=== PATIENT | male | born 1950 | race American Indian/Alaskan Native ===

== ENCOUNTER 2018-10-05 13:40 | Inpatient (IN) | payer MEDICARE, OTHER ==
[2018-10-05 14:27] LABS: Hematocrit 27.7 % (35.5-45.6); Hemoglobin 9.1 gm/dl (11.8-15.2); Mean Corpuscular HGB Conc 33 % (32-34); Mean Corpuscular Volume 103 fl (84-94); Platelet Count 348 K/mm3 (140-440); Red Blood Count 2.68 M/mm3 (3.65-5.03); Red Cell Distribution Width 17.2 % (13.2-15.2)
--- NOTE | 2018-10-05 14:41 | XRay Report ---
AP CHEST: HISTORY: short of breath AP view of the chest demonstrates a normal mediastinal and cardiac contour with clear lungs and normal bony and soft tissue structures. IMPRESSION: Unremarkable AP chest.
[2018-10-05 14:42] LABS: INR 1.72 (0.87-1.13)
[2018-10-05 14:43] LABS: Albumin 2.4 g/dL (3.9-5); Calcium 8.5 mg/dL (8.4-10.2); Partial Thromboplastin Time 34.7 Sec. (24.2-36.6)
[2018-10-05] MEDS ORDERED: CEPHULAC PR ONE (14:50)
[2018-10-05] MEDS ORDERED: ZOSYN/NS 4.5GM/100ML 4.5 GM/100 ML VIAL IV ONE (14:51)
[2018-10-05] MEDS ORDERED: HumuLIN R IV ONE (14:52)
[2018-10-05] MEDS ORDERED: CALCIUM CHLORIDE IV ONE ×2 (14:52→23:00)
[2018-10-05] MEDS ORDERED: D50W (25GM) Syringe IV ONE ×3 (14:52→23:00)
[2018-10-05] MEDS ORDERED: PROVENTIL IH ONE (14:53)
--- NOTE | 2018-10-05 14:59 | Cat Scan Report ---
CT HEAD WITHOUT CONTRAST: HISTORY: Altered mental status. TECHNIQUE: Sequential 2.5mm CT images. COMPARISON: none. FINDINGS: Cerebral Parenchyma: Within normal limits. Cerebellum: Within normal limits. Brainstem: Within normal limits. Ventricles: Normal. Sella: Normal. Extra-axial spaces: Normal. Basal Cisterns: Normal. Intracranial Hemorrhage: None. Midline Shift: None. Calvarium: Normal. Sinuses: Normal. Mastoid Air Cells: Normal. Visualized Orbits: Normal. IMPRESSION: Cranial CT scan within normal limits.
[2018-10-05] MEDS ORDERED: NACL 0.9% 1000 ML IV ONE ×2 (15:03→20:06)
--- NOTE | 2018-10-05 15:08 | Emergency Department Report ---
<DAVID RAGLAND - Last Filed: 10/06/18 05:30> ED Altered Mental Status HPI - General Chief Complaint: Altered Mental Status Stated Complaint: DANISHA Time Seen by Provider: 10/05/18 13:57 - Related Data Home Medications Medication Instructions Recorded Confirmed Last Taken No Known Home Medications [No 10/05/18 10/05/18 Unknown Reported Home Medications] Allergies Allergy/AdvReac Type Severity Reaction Status Date / Time No Known Allergies Allergy Unverified 10/05/18 14:00 ED Past Medical Hx - Medications Home Medications: Home Medications Medication Instructions Recorded Confirmed Last Taken Type No Known Home Medications [No 10/05/18 10/05/18 Unknown History Reported Home Medications] ED Course - Reevaluation(s) Reevaluation #2: 10/06/18 01:38 Responded to call for help from nursing staff for altered mental status and pulselessness. Upon my arrival, patient is pulseless, and not protecting his airway. Patient received CPR, standard ACLS medications. Patient also treated empirically for hyperkalemia, and hypoglycemia. Patient aggressively suctioned by respiratory therapy, and receives [id number] ventilation while pulseless. Patient's has given verbal consent for intubation after pulses have been reobtained. Pulses are obtained, and the patient is intubated by myself. Patient subsequently loses pulses. He is currently receiving resuscitation from the hospitalist, Dr. Claudio Patient has a central line was placed by the preceding team. I will defer postintubation postresuscitation management to the hospital team, which has already admitted the patient. Prognosis is quite poor. - Intubation Time Out Performed: No (verbal consent provided by ) Laryngoscope: Yunior Size: 4 ET Tube Size: 7.5 Tube Secured Depth (cm): 23 Tube Secured Location: teeth Tube Placement Confirmation: visualized tube passing t, equal breath sounds bilat, no breath sounds over epi, confirmation by capnometr Intubation Complications: difficult intubation - Lab Data Result diagrams: 10/05/18 14:05 10/05/18 14:05 ED Disposition Clinical Impression: Hepatic encephalopathy, Lactic acidosis, Hyperkalemia Acute renal failure Qualifiers: Acute renal failure type: with acute tubular necrosis Qualified Code(s): N17.0 - Acute kidney failure with tubular necrosis Sepsis Qualifiers: Sepsis type: sepsis due to unspecified organism Qualified Code(s): A41.9 - Sepsis, unspecified organism Disposition: DC-20 Is pt being admited?: No Does the pt Need Aspirin: No Condition: Undetermined <SYLWIA RAMACHANDRAN - Last Filed: 10/06/18 12:40> ED Altered Mental Status HPI - General Source: EMS Mode of arrival: Stretcher Limitations: Altered Mental Status - History of Present Illness Initial Comments: 68-year-old male with history of COPD, recently diagnosed cirrhosis and liver cancer presents ED by EMS for altered mental status. Patient's states patient started to become less responsive last night. However today, patient has not been talking at all. states patient was recently diagnosed with cirrhosis and liver cancer July 2018. Patient had a peritoneal catheter placed for drainage of ascitic fluid, however, patient has not yet started chemotherapy or radiation treatments. states patient has home health nurse, who comes to see patient, dressings on peritoneal catheter were changed yesterday. MD Complaint: altered mental status -: Last night Severity: severe Consistency of Symptoms: getting worse Context: liver disease ED Review of Systems ROS: Stated complaint: DANISHA Other details as noted in HPI Comment: Unobtainable due to pts medical conditions (altered mental status) ED Past Medical Hx - Past Medical History Previous Medical History?: Yes Hx Liver Disease: Yes (LIVER CANCER) Hx of Cancer: Yes (STAGE 4 LIVER CANCER) - Surgical History Past Surgical History?: Yes - Social History Smoking Status: Unknown if ever smoked ED Physical Exam - General Limitations: Altered Mental Status General appearance: obtunded - Head Head exam: Present: atraumatic, normocephalic - Eye Eye exam: Present: scleral icterus - ENT ENT exam: Present: other (dried blood in oropharynx) - Neck Neck exam: Present: normal inspection - Respiratory Respiratory exam: Present: rhonchi - Cardiovascular Cardiovascular Exam: Present: regular rate, normal rhythm - GI/Abdominal GI/Abdominal exam: Present: soft, distended (mildly), other (catheter in place in right abdominal wall) - Extremities Exam Extremities exam: Present: normal inspection - Skin Skin exam: Present: warm, dry, intact, normal color ED Course Vital Signs 10/05/18 10/05/18 10/05/18 13:46 14:00 14:01 Temperature 96.0 F L Pulse Rate 101 H 120 H Pulse Rate [ Bilateral] Pulse Rate [ Throughout] Respiratory 22 10 L Rate Respiratory Rate [Bilateral ] Respiratory Rate [ Throughout] Blood Pressure 109/62 Blood Pressure 108/60 [Left] O2 Sat by Pulse 97 98 97 Oximetry 10/05/18 10/05/18 10/05/18 14:07 14:15 14:16 Temperature Pulse Rate 118 H 98 H Pulse Rate [ Bilateral] Pulse Rate [ Throughout] Respiratory 10 L 10 L 21 Rate Respiratory Rate [Bilateral ] Respiratory Rate [ Throughout] Blood Pressure 101/62 Blood Pressure 95/49 [Left] O2 Sat by Pulse 95 96 98 Oximetry 10/05/18 10/05/18 10/05/18 14:38 14:45 14:46 Temperature Pulse Rate 98 H 117 H 97 H Pulse Rate [ Bilateral] Pulse Rate [ Throughout] Respiratory 21 10 L 25 H Rate Respiratory Rate [Bilateral ] Respiratory Rate [ Throughout] Blood Pressure 93/64 112/60 Blood Pressure 99/58 [Left] O2 Sat by Pulse 98 96 99 Oximetry 10/05/18 10/05/18 10/05/18 15:00 15:15 15:16 Temperature Pulse Rate 97 H 116 H 109 H Pulse Rate [ Bilateral] Pulse Rate [ Throughout] Respiratory 25 H 22 25 H Rate Respiratory Rate [Bilateral ] Respiratory Rate [ Throughout] Blood Pressure 103/60 118/73 Blood Pressure 102/66 [Left] O2 Sat by Pulse 98 95 94 Oximetry 10/05/18 10/05/18 10/05/18 15:30 15:46 15:55 Temperature 97.2 F L Pulse Rate 115 H 109 H Pulse Rate [ Bilateral] Pulse Rate [ Throughout] Respiratory 26 H 24 Rate Respiratory Rate [Bilateral ] Respiratory Rate [ Throughout] Blood Pressure 102/66 102/66 Blood Pressure [Left] O2 Sat by Pulse 94 97 Oximetry 10/05/18 10/05/18 10/05/18 16:00 16:16 16:25 Temperature Pulse Rate 109 H 98 H 112 H Pulse Rate [ Bilateral] Pulse Rate [ Throughout] Respiratory 23 25 H 25 H Rate Respiratory Rate [Bilateral ] Respiratory Rate [ Throughout] Blood Pressure 128/87 130/79 Blood Pressure 125/74 [Left] O2 Sat by Pulse 98 99 95 Oximetry 10/05/18 10/05/18 10/05/18 16:30 16:40 16:46 Temperature Pulse Rate 109 H 103 H 108 H Pulse Rate [ Bilateral] Pulse Rate [ Throughout] Respiratory 27 H 24 28 H Rate Respiratory Rate [Bilateral ] Respiratory Rate [ Throughout] Blood Pressure 125/74 108/59 107/68 Blood Pressure [Left] O2 Sat by Pulse 100 100 100 Oximetry 10/05/18 10/05/18 10/05/18 17:00 17:16 17:30 Temperature Pulse Rate 108 H 107 H 103 H Pulse Rate [ 100 H Bilateral] Pulse Rate [ 103 H Throughout] Respiratory 27 H 26 H 24 Rate Respiratory 27 H Rate [Bilateral ] Respiratory 24 Rate [ Throughout] Blood Pressure 101/77 107/68 116/67 Blood Pressure [Left] O2 Sat by Pulse 100 100 100 Oximetry 10/05/18 10/05/18 10/05/18 17:46 18:00 18:16 Temperature Pulse Rate 101 H 105 H 113 H Pulse Rate [ Bilateral] Pulse Rate [ Throughout] Respiratory 27 H 25 H 25 H Rate Respiratory Rate [Bilateral ] Respiratory Rate [ Throughout] Blood Pressure 97/61 117/82 130/88 Blood Pressure [Left] O2 Sat by Pulse 100 100 100 Oximetry 10/05/18 10/05/18 10/05/18 18:30 18:46 19:00 Temperature Pulse Rate 114 H 116 H 116 H Pulse Rate [ Bilateral] Pulse Rate [ Throughout] Respiratory 26 H 24 23 Rate Respiratory Rate [Bilateral ] Respiratory Rate [ Throughout] Blood Pressure 115/77 119/76 115/65 Blood Pressure [Left] O2 Sat by Pulse 100 99 99 Oximetry 10/05/18 10/05/18 10/05/18 19:16 19:30 19:46 Temperature Pulse Rate 107 H 104 H 102 H Pulse Rate [ Bilateral] Pulse Rate [ Throughout] Respiratory 20 21 20 Rate Respiratory Rate [Bilateral ] Respiratory Rate [ Throughout] Blood Pressure 93/54 96/47 80/54 Blood Pressure [Left] O2 Sat by Pulse 96 98 98 Oximetry 10/05/18 10/05/18 10/05/18 20:00 20:16 20:30 Temperature Pulse Rate 99 H 103 H 103 H Pulse Rate [ Bilateral] Pulse Rate [ Throughout] Respiratory 24 25 H 28 H Rate Respiratory Rate [Bilateral ] Respiratory Rate [ Throughout] Blood Pressure 99/64 91/60 98/62 Blood Pressure [Left] O2 Sat by Pulse 97 99 100 Oximetry 10/05/18 10/05/18 10/05/18 20:46 21:00 21:16 Temperature Pulse Rate 108 H 104 H 102 H Pulse Rate [ Bilateral] Pulse Rate [ Throughout] Respiratory 28 H 22 34 H Rate Respiratory Rate [Bilateral ] Respiratory Rate [ Throughout] Blood Pressure 91/64 99/56 84/48 Blood Pressure [Left] O2 Sat by Pulse 100 100 100 Oximetry 10/05/18 10/05/18 10/05/18 21:28 21:30 21:46 Temperature Pulse Rate 98 H Pulse Rate [ Bilateral] Pulse Rate [ Throughout] Respiratory 24 22 Rate Respiratory Rate [Bilateral ] Respiratory Rate [ Throughout] Blood Pressure 103/55 103/56 Blood Pressure [Left] O2 Sat by Pulse 100 100 100 Oximetry 10/05/18 10/05/18 10/05/18 22:00 22:16 22:30 Temperature Pulse Rate Pulse Rate [ Bilateral] Pulse Rate [ Throughout] Respiratory Rate Respiratory Rate [Bilateral ] Respiratory Rate [ Throughout] Blood Pressure 85/52 91/61 124/50 Blood Pressure [Left] O2 Sat by Pulse 100 96 80 L Oximetry 10/05/18 10/05/18 10/05/18 22:46 23:00 23:06 Temperature Pulse Rate 113 H 112 H 109 H Pulse Rate [ Bilateral] Pulse Rate [ Throughout] Respiratory 24 24 25 H Rate Respiratory Rate [Bilateral ] Respiratory Rate [ Throughout] Blood Pressure 105/47 97/50 97/50 Blood Pressure [Left] O2 Sat by Pulse 89 92 92 Oximetry 10/05/18 10/05/18 10/05/18 23:16 23:30 23:46 Temperature Pulse Rate 106 H 106 H 103 H Pulse Rate [ Bilateral] Pulse Rate [ Throughout] Respiratory 25 H 26 H 27 H Rate Respiratory Rate [Bilateral ] Respiratory Rate [ Throughout] Blood Pressure 95/48 87/46 85/45 Blood Pressure [Left] O2 Sat by Pulse 91 93 92 Oximetry 10/06/18 10/06/18 10/06/18 00:00 00:16 00:30 Temperature Pulse Rate 101 H 99 H 97 H Pulse Rate [ Bilateral] Pulse Rate [ Throughout] Respiratory 25 H 28 H 25 H Rate Respiratory Rate [Bilateral ] Respiratory Rate [ Throughout] Blood Pressure 77/39 80/47 80/53 Blood Pressure [Left] O2 Sat by Pulse 93 94 92 Oximetry 10/06/18 10/06/18 10/06/18 00:46 01:00 01:16 Temperature Pulse Rate 96 H 90 124 H Pulse Rate [ Bilateral] Pulse Rate [ Throughout] Respiratory 28 H 28 H 29 H Rate Respiratory Rate [Bilateral ] Respiratory Rate [ Throughout] Blood Pressure 87/48 84/50 82/33 Blood Pressure [Left] O2 Sat by Pulse 94 88 41 L Oximetry 10/06/18 10/06/18 01:30 01:46 Temperature Pulse Rate 36 L Pulse Rate [ Bilateral] Pulse Rate [ Throughout] Respiratory 10 L 21 Rate Respiratory Rate [Bilateral ] Respiratory Rate [ Throughout] Blood Pressure 82/33 108/16 Blood Pressure [Left] O2 Sat by Pulse Oximetry - Reevaluation(s) Reevaluation #1: 10/05/18 16:27 Spoke at length with pt's . States pt is currently with [facility], however, pt is not DNR. Informed her that pt is very sick at this time, and that a cardiac arrest is possible in this setting. Spoke w/ her about possible intubation due to labored breathing and to protect his airway, however, she does not want him intubated b/c she believes he will never come off the vent. I explained to her that if pt improves, he will be extubated. still refuses intubation at this time. Will place on BiPAP. - Consultations Consultation #1: 10/05/18 16:12 Spoke w/ [place] physician, Dr Villar. [facility] records show that pt has hx of ETOH abuse, hepatocellular carcinoma, portal vein thrombosis, malignant ascites, not candidate for aggressive systemic treatment. Patient has had pallitive care consults as well. She feels as if this patient is too unstable for transfer. Would like pt to be admitted here at [facility]. Consultation #2: 10/05/18 16:09 Spoke w/ Dr Nolen, faa certified powerplant mechanic, regarding pt's acute renal failure and hyperkalemia. Will see the patient. - Lab Data Result diagrams: 10/05/18 14:05 10/05/18 14:05 Lab Results 10/05/18 10/05/18 10/05/18 Range/Units 14:05 14:05 14:05 WBC 27.4 H (4.5-11.0) K/mm3 RBC 2.68 L (3.65-5.03) M/mm3 Hgb 9.1 L (11.8-15.2) gm/dl Hct 27.7 L (35.5-45.6) % MCV 103 H (84-94) fl MCH 34 H (28-32) pg MCHC 33 (32-34) % RDW 17.2 H (13.2-15.2) % Plt Count 348 (140-440) K/mm3 Add Manual Diff Complete Total Counted 100 Seg Neuts % (Manual) 86.0 H (40.0-70.0) % Band Neutrophils % 0 % Lymphocytes % (Manual) 9.0 L (13.4-35.0) % Reactive Lymphs % (Man) 0 % Monocytes % (Manual) 5.0 (0.0-7.3) % Eosinophils % (Manual) 0 (0.0-4.3) % Basophils % (Manual) 0 (0.0-1.8) % Metamyelocytes % 0 % Myelocytes % 0 % Promyelocytes % 0 % Blast Cells % 0 % Nucleated RBC % Not Reportable Seg Neutrophils # Man 23.6 H (1.8-7.7) K/mm3 Band Neutrophils # 0.0 K/mm3 Lymphocytes # (Manual) 2.5 (1.2-5.4) K/mm3 Abs React Lymphs (Man) 0.0 K/mm3 Monocytes # (Manual) 1.4 H (0.0-0.8) K/mm3 Eosinophils # (Manual) 0.0 (0.0-0.4) K/mm3 Basophils # (Manual) 0.0 (0.0-0.1) K/mm3 Metamyelocytes # 0.0 K/mm3 Myelocytes # 0.0 K/mm3 Promyelocytes # 0.0 K/mm3 Blast Cells # 0.0 K/mm3 WBC Morphology Not Reportable Hypersegmented Neuts Not Reportable Hyposegmented Neuts Not Reportable Hypogranular Neuts Not Reportable Smudge Cells Not Reportable Toxic Granulation Not Reportable Toxic Vacuolation Not Reportable Dohle Bodies Not Reportable Pelger-Huet Anomaly Not Reportable Duncan Rods Not Reportable Platelet Estimate Not Reportable Clumped Platelets Not Reportable Plt Clumps, EDTA Not Reportable Large Platelets Not Reportable Giant Platelets Not Reportable Platelet Satelliting Not Reportable Plt Morphology Comment Not Reportable RBC Morphology Normal Dimorphic RBCs Not Reportable Polychromasia Not Reportable Hypochromasia Not Reportable Poikilocytosis Not Reportable Anisocytosis Not Reportable Microcytosis Not Reportable Macrocytosis Not Reportable Spherocytes Not Reportable Pappenheimer Bodies Not Reportable Sickle Cells Not Reportable Target Cells Not Reportable Tear Drop Cells Not Reportable Ovalocytes Not Reportable Helmet Cells Not Reportable Fernandez-Bluejacket Bodies Not Reportable [place] Rings Not Reportable Eagle Cells Not Reportable Bite Cells Not Reportable Crenated Cell Not Reportable Elliptocytes Not Reportable Acanthocytes (Spur) Not Reportable Rouleaux Not Reportable Hemoglobin C Crystals Not Reportable Schistocytes Not Reportable Malaria parasites Not Reportable Anderson Bodies Not Reportable Hem Pathologist Commnt No PT 20.6 H (12.2-14.9) Sec. INR 1.72 H (0.87-1.13) APTT 34.7 (24.2-36.6) Sec. Sodium 139 (137-145) mmol/L Potassium 6.8 H* (3.6-5.0) mmol/L Chloride 95.8 L (98-107) mmol/L Carbon Dioxide 20 L (22-30) mmol/L Anion Gap 30 mmol/L BUN 84 H (9-20) mg/dL Creatinine 2.5 H (0.8-1.5) mg/dL Estimated GFR 26 ml/min BUN/Creatinine Ratio 34 % Glucose 80 (75-100) mg/dL Lactic Acid (0.7-2.0) mmol/L Calcium 8.5 (8.4-10.2) mg/dL Total Bilirubin 7.80 H (0.1-1.2) mg/dL AST 343 H (5-40) units/L ALT 99 H (7-56) units/L Alkaline Phosphatase 264 H (35-129) units/L Ammonia (25-60) umol/L Troponin T (0.00-0.029) ng/mL Total Protein 6.8 (6.3-8.2) g/dL Albumin 2.4 L (3.9-5) g/dL Albumin/Globulin Ratio 0.5 % Urine Color (Yellow) Urine Turbidity (Clear) Urine pH (5.0-7.0) Ur Specific Elon (1.003-1.030) Urine Protein (Negative) mg/dL Urine Glucose (UA) (Negative) mg/dL Urine Ketones (Negative) mg/dL Urine Blood (Negative) Urine Nitrite (Negative) Urine Bilirubin (Negative) Urine Ictotest (Negative) Urine Urobilinogen (<2.0) mg/dL Ur Leukocyte Esterase (Negative) Urine WBC (Auto) (0.0-6.0) /HPF Urine RBC (Auto) (0.0-6.0) /HPF U Epithel Cells (Auto) (0-13.0) /HPF Urine Bacteria (Auto) (Negative) /HPF Urine WBC Clumps /HPF Hyaline Casts /LPF Urine Mucus /HPF Urine Yeast (Budding) /HPF 10/05/18 10/05/18 10/05/18 Range/Units 14:05 14:05 14:23 WBC (4.5-11.0) K/mm3 RBC (3.65-5.03) M/mm3 Hgb (11.8-15.2) gm/dl Hct (35.5-45.6) % MCV (84-94) fl MCH (28-32) pg MCHC (32-34) % RDW (13.2-15.2) % Plt Count (140-440) K/mm3 Add Manual Diff Total Counted Seg Neuts % (Manual) (40.0-70.0) % Band Neutrophils % % Lymphocytes % (Manual) (13.4-35.0) % Reactive Lymphs % (Man) % Monocytes % (Manual) (0.0-7.3) % Eosinophils % (Manual) (0.0-4.3) % Basophils % (Manual) (0.0-1.8) % Metamyelocytes % % Myelocytes % % Promyelocytes % % Blast Cells % % Nucleated RBC % Seg Neutrophils # Man (1.8-7.7) K/mm3 Band Neutrophils # K/mm3 Lymphocytes # (Manual) (1.2-5.4) K/mm3 Abs React Lymphs (Man) K/mm3 Monocytes # (Manual) (0.0-0.8) K/mm3 Eosinophils # (Manual) (0.0-0.4) K/mm3 Basophils # (Manual) (0.0-0.1) K/mm3 Metamyelocytes # K/mm3 Myelocytes # K/mm3 Promyelocytes # K/mm3 Blast Cells # K/mm3 WBC Morphology Hypersegmented Neuts Hyposegmented Neuts Hypogranular Neuts Smudge Cells Toxic Granulation Toxic Vacuolation Dohle Bodies Pelger-Huet Anomaly Duncan Rods Platelet Estimate Clumped Platelets Plt Clumps, EDTA Large Platelets Giant Platelets Platelet Satelliting Plt Morphology Comment RBC Morphology Dimorphic RBCs Polychromasia Hypochromasia Poikilocytosis Anisocytosis Microcytosis Macrocytosis Spherocytes Pappenheimer Bodies Sickle Cells Target Cells Tear Drop Cells Ovalocytes Helmet Cells Fernandez-Bluejacket Bodies [place] Rings Eagle Cells Bite Cells Crenated Cell Elliptocytes Acanthocytes (Spur) Rouleaux Hemoglobin C Crystals Schistocytes Malaria parasites Anderson Bodies Hem Pathologist Commnt PT (12.2-14.9) Sec. INR (0.87-1.13) APTT (24.2-36.6) Sec. Sodium (137-145) mmol/L Potassium (3.6-5.0) mmol/L Chloride (98-107) mmol/L Carbon Dioxide (22-30) mmol/L Anion Gap mmol/L BUN (9-20) mg/dL Creatinine (0.8-1.5) mg/dL Estimated GFR ml/min BUN/Creatinine Ratio % Glucose (75-100) mg/dL Lactic Acid 7.20 H* (0.7-2.0) mmol/L Calcium (8.4-10.2) mg/dL Total Bilirubin (0.1-1.2) mg/dL AST (5-40) units/L ALT (7-56) units/L Alkaline Phosphatase (35-129) units/L Ammonia 143.0 H (25-60) umol/L Troponin T < 0.010 (0.00-0.029) ng/mL Total Protein (6.3-8.2) g/dL Albumin (3.9-5) g/dL Albumin/Globulin Ratio % Urine Color (Yellow) Urine Turbidity (Clear) Urine pH (5.0-7.0) Ur Specific Elon (1.003-1.030) Urine Protein (Negative) mg/dL Urine Glucose (UA) (Negative) mg/dL Urine Ketones (Negative) mg/dL Urine Blood (Negative) Urine Nitrite (Negative) Urine Bilirubin (Negative) Urine Ictotest (Negative) Urine Urobilinogen (<2.0) mg/dL Ur Leukocyte Esterase (Negative) Urine WBC (Auto) (0.0-6.0) /HPF Urine RBC (Auto) (0.0-6.0) /HPF U Epithel Cells (Auto) (0-13.0) /HPF Urine Bacteria (Auto) (Negative) /HPF Urine WBC Clumps /HPF Hyaline Casts /LPF Urine Mucus /HPF Urine Yeast (Budding) /HPF 10/05/18 10/05/18 10/05/18 Range/Units 14:50 15:30 17:58 WBC (4.5-11.0) K/mm3 RBC (3.65-5.03) M/mm3 Hgb (11.8-15.2) gm/dl Hct (35.5-45.6) % MCV (84-94) fl MCH (28-32) pg MCHC (32-34) % RDW (13.2-15.2) % Plt Count (140-440) K/mm3 Add Manual Diff Total Counted Seg Neuts % (Manual) (40.0-70.0) % Band Neutrophils % % Lymphocytes % (Manual) (13.4-35.0) % Reactive Lymphs % (Man) % Monocytes % (Manual) (0.0-7.3) % Eosinophils % (Manual) (0.0-4.3) % Basophils % (Manual) (0.0-1.8) % Metamyelocytes % % Myelocytes % % Promyelocytes % % Blast Cells % % Nucleated RBC % Seg Neutrophils # Man (1.8-7.7) K/mm3 Band Neutrophils # K/mm3 Lymphocytes # (Manual) (1.2-5.4) K/mm3 Abs React Lymphs (Man) K/mm3 Monocytes # (Manual) (0.0-0.8) K/mm3 Eosinophils # (Manual) (0.0-0.4) K/mm3 Basophils # (Manual) (0.0-0.1) K/mm3 Metamyelocytes # K/mm3 Myelocytes # K/mm3 Promyelocytes # K/mm3 Blast Cells # K/mm3 WBC Morphology Hypersegmented Neuts Hyposegmented Neuts Hypogranular Neuts Smudge Cells Toxic Granulation Toxic Vacuolation Dohle Bodies Pelger-Huet Anomaly Duncan Rods Platelet Estimate Clumped Platelets Plt Clumps, EDTA Large Platelets Giant Platelets Platelet Satelliting Plt Morphology Comment RBC Morphology Dimorphic RBCs Polychromasia Hypochromasia Poikilocytosis Anisocytosis Microcytosis Macrocytosis Spherocytes Pappenheimer Bodies Sickle Cells Target Cells Tear Drop Cells Ovalocytes Helmet Cells Fernandez-Bluejacket Bodies [place] Rings Eagle Cells Bite Cells Crenated Cell Elliptocytes Acanthocytes (Spur) Rouleaux Hemoglobin C Crystals Schistocytes Malaria parasites Anderson Bodies Hem Pathologist Commnt PT (12.2-14.9) Sec. INR (0.87-1.13) APTT (24.2-36.6) Sec. Sodium (137-145) mmol/L Potassium (3.6-5.0) mmol/L Chloride (98-107) mmol/L Carbon Dioxide (22-30) mmol/L Anion Gap mmol/L BUN (9-20) mg/dL Creatinine (0.8-1.5) mg/dL Estimated GFR ml/min BUN/Creatinine Ratio % Glucose (75-100) mg/dL Lactic Acid 7.60 H* 6.20 H* (0.7-2.0) mmol/L Calcium (8.4-10.2) mg/dL Total Bilirubin (0.1-1.2) mg/dL AST (5-40) units/L ALT (7-56) units/L Alkaline Phosphatase (35-129) units/L Ammonia (25-60) umol/L Troponin T (0.00-0.029) ng/mL Total Protein (6.3-8.2) g/dL Albumin (3.9-5) g/dL Albumin/Globulin Ratio % Urine Color Emy (Yellow) Urine Turbidity Slightly-cloudy (Clear) Urine pH 5.0 (5.0-7.0) Ur Specific Elon 1.016 (1.003-1.030) Urine Protein <15 mg/dl (Negative) mg/dL Urine Glucose (UA) Neg (Negative) mg/dL Urine Ketones Neg (Negative) mg/dL Urine Blood Lg (Negative) Urine Nitrite Neg (Negative) Urine Bilirubin Sm (Negative) Urine Ictotest Negative (Negative) Urine Urobilinogen 4.0 (<2.0) mg/dL Ur Leukocyte Esterase Neg (Negative) Urine WBC (Auto) 6.0 (0.0-6.0) /HPF Urine RBC (Auto) 8.0 (0.0-6.0) /HPF U Epithel Cells (Auto) < 1.0 (0-13.0) /HPF Urine Bacteria (Auto) 1+ (Negative) /HPF Urine WBC Clumps 2+ /HPF Hyaline Casts 7 /LPF Urine Mucus Few /HPF Urine Yeast (Budding) Few /HPF - EKG Data -: EKG Interpreted by Me EKG shows normal: sinus rhythm, axis, intervals, QRS complexes, ST-T waves Rate: normal Interpretation: no acute changes - Radiology Data Radiology results: report reviewed, image reviewed - Medical Decision Making 68-year-old male with history of liver cirrhosis and liver cancer presents with altered mental status since last night. Patient is obtunded, minimal response to painful stimuli. Blood pressure is borderline, pt is afebrile. Breathing labored. CT Head and CXR negative. WBCs elevated to 26, with elevation in lactic acid to 7. Cultures obtained, zosyn given. Patient in acute renal failure with elevation of BUN and creatnine. IV fluids given. Pt resuscitated w/ 30 cc/kg bolus of NS. Potassium elevated due to ARF. Insulin, D50, calcium, albuterol given, kayexalate given. Dr Nolen, faa certified powerplant mechanic, consulted. Ammonia level also elevated, possibly contributing to pt's altered mental status. OR lactulose ordered for patient. Patient placed on BIPAP since refused intubation, however, does state that pt is a full code. Patient on Hospice care due to his liver cancer. Spoke at length with patient's about his diagnoses and his critical condition. understands. Spoke w/ on-call [place] physician. States pt too unstable for transfer to their facility. Dr Ramsey, hospitalist, to admit the patient. - Differential Diagnosis sepsis, pneumonia, CVA, hepatic encephalopathy, SBP Critical Care Time: Yes Critical care time in (mins) excluding proc time.: 60 Critical care attestation.: If time is entered above; I have spent that time in minutes in the direct care of this critically ill patient, excluding procedure time. Critical Care Time: 60 minutes ED Disposition Is pt being admited?: Yes Time of Disposition: 16:30
[2018-10-05 15:15] LABS: Bacteria,Urine 1+ /HPF (Negative); Bilirubin,Urine SM (Negative); Blood,Urine LG (Negative); Color,Urine Amber (Yellow); Mucus,Urine FEW /HPF; Protein,Urine <15 mg/dL mg/dL (Negative)
[2018-10-05] MEDS ORDERED: NACL 0.9% 500 ML 500 ML ONE ×2 (15:42→23:33)
[2018-10-05 15:46] LABS: Basophils % (Manual) 0 % (0.0-1.8); Eosinophils % (Manual) 0 % (0.0-4.3); RBC Morphology Normal; Total Cells Counted 100
[2018-10-05 16:00] LABS: Hyaline Casts,Urine 7 /LPF
[2018-10-05 16:02] LABS: Ictotest,Urine Negative (Negative)
[2018-10-05] MEDS ORDERED: KIONEX PR ONE (18:08)
[2018-10-05] MEDS ORDERED: SODIUM CHLORIDE FLUSH SYRINGE 10 ML IV PRN (20:03)
[2018-10-05] MEDS ORDERED: PROVENTIL IH PRN (20:03)
[2018-10-05] MEDS ORDERED: VANCOMYCIN 1,000 MG in NACL 0.9% 500 ML 500 ML IV ONE (20:06)
--- NOTE | 2018-10-05 20:08 | History and Physical Report ---
History of Present Illness Chief complaint: Hes getting more confused History of present illness: 68 YO Male with Stage 4 Liver Cancer, Recurrent Ascites S/P Peritoneal drain placement, Cirrhosis, COPD currently on Hospice Service with [facility] presents to ED for evaluation. Pt is stuporous/comatose and unable to provide history. Pt history provided by who is at bedside during exam and interview. As per , the patient has become increasingly unresponsive, nonverbal, and unable to eat over the past 1 week, with worsening symptoms over the past 1 day. EMS notifies and upon arrival patient found to be stuporous. Pt transported to [facility] for further care and evaluation. Pt seen and evaluated in ED and found to have sepsis, Acute/Chronic Renal Failure, Acidosis, Encephalopathy, and Acute Respiratory Failure. Pt found to have poor prognosis. Pt expressed desire for aggressive medical care and revoked Hospice Benefit. Risks and benefits explained to patient who acknowledges understanding that the therapy may worsen patient status. [facility] Physician notified, and approved admission to ICU. Discussed with Dr. Villar. No further history obtainable. Pt admitted to ICU and initiated on sepsis protocol. Pt seen and evaluated by Nephrology service in ED and found not to be a candidate for dialysis at this time. Past History Past Medical History: cancer, COPD Past Surgical History: Other (PD drian placement) Social history: , lives with family. denies: smoking, alcohol abuse Family history: hypertension Medications and Allergies Allergies Allergy/AdvReac Type Severity Reaction Status Date / Time No Known Allergies Allergy Unverified 10/05/18 14:00 Home Medications Medication Instructions Recorded Confirmed Last Taken Type No Known Home Medications [No 10/05/18 10/05/18 Unknown History Reported Home Medications] Active Meds: Active Medications Albuterol (Proventil) 2.5 mg IH Q3HRT PRN PRN Reason: Shortness Of Breath Vancomycin HCl 1,000 mg/ (Sodium Chloride) 520 mls @ 333 mls/hr IV ONCE ONE; Protocol Stop: 10/05/18 21:39 Sodium Chloride (Sodium Chloride Flush Syringe 10 Ml) 10 ml IV BID SHIRA Sodium Chloride (Sodium Chloride Flush Syringe 10 Ml) 10 ml IV PRN PRN PRN Reason: LINE FLUSH Sodium Chloride (Nacl 0.9% 1000 Ml) 1,500 ml 30 ml/kg (1500 ml) IV ONCE ONE Stop: 10/05/18 20:07 Review of Systems ROS unobtainable: due to mental status Exam - Constitutional Vitals: Temp Pulse Resp BP Pulse Ox 97.2 F L 107 H 20 93/54 96 10/05/18 15:55 10/05/18 19:16 10/05/18 19:16 10/05/18 19:16 10/05/18 19:16 General appearance: Present: severe distress, cachectic - EENT Eyes: Present: miosis - Neck Neck: Present: supple, normal ROM, masses or JVD - Respiratory Respiratory: bilateral: diminished, rhonchi - Cardiovascular Rhythm: other (tachycardia, hypotension) Heart Sounds: Present: S1 & S2. Absent: rub, click - Extremities Extremities: pulses symmetrical, No edema Peripheral Pulses: abnormal (capillary refill greater than 3.5 seconds) - Abdominal General gastrointestinal: Present: soft, non-tender, distended, hypoactive bowel sounds Male genitourinary: Present: normal - Integumentary Integumentary: Present: clear, dry, clammy, decreased turgor - Musculoskeletal Musculoskeletal: generalized weakness - Psychiatric Psychiatric: no appropriate mood/affect, no intact judgment & insight, no memory intact - Neurologic Neurologic: no moves all extremities, no gait normal Results - Labs CBC & Chem 7: 10/05/18 14:05 10/05/18 14:05 Labs: Abnormal lab results 10/05/18 10/05/18 10/05/18 Range/Units 14:05 14:05 14:05 WBC 27.4 H (4.5-11.0) K/mm3 RBC 2.68 L (3.65-5.03) M/mm3 Hgb 9.1 L (11.8-15.2) gm/dl Hct 27.7 L (35.5-45.6) % MCV 103 H (84-94) fl MCH 34 H (28-32) pg RDW 17.2 H (13.2-15.2) % Seg Neuts % (Manual) 86.0 H (40.0-70.0) % Lymphocytes % (Manual) 9.0 L (13.4-35.0) % Seg Neutrophils # Man 23.6 H (1.8-7.7) K/mm3 Monocytes # (Manual) 1.4 H (0.0-0.8) K/mm3 PT 20.6 H (12.2-14.9) Sec. INR 1.72 H (0.87-1.13) Potassium 6.8 H* (3.6-5.0) mmol/L Chloride 95.8 L (98-107) mmol/L Carbon Dioxide 20 L (22-30) mmol/L BUN 84 H (9-20) mg/dL Creatinine 2.5 H (0.8-1.5) mg/dL Lactic Acid (0.7-2.0) mmol/L Total Bilirubin 7.80 H (0.1-1.2) mg/dL AST 343 H (5-40) units/L ALT 99 H (7-56) units/L Alkaline Phosphatase 264 H (35-129) units/L Ammonia (25-60) umol/L Albumin 2.4 L (3.9-5) g/dL 10/05/18 10/05/18 10/05/18 Range/Units 14:05 14:05 15:30 WBC (4.5-11.0) K/mm3 RBC (3.65-5.03) M/mm3 Hgb (11.8-15.2) gm/dl Hct (35.5-45.6) % MCV (84-94) fl MCH (28-32) pg RDW (13.2-15.2) % Seg Neuts % (Manual) (40.0-70.0) % Lymphocytes % (Manual) (13.4-35.0) % Seg Neutrophils # Man (1.8-7.7) K/mm3 Monocytes # (Manual) (0.0-0.8) K/mm3 PT (12.2-14.9) Sec. INR (0.87-1.13) Potassium (3.6-5.0) mmol/L Chloride (98-107) mmol/L Carbon Dioxide (22-30) mmol/L BUN (9-20) mg/dL Creatinine (0.8-1.5) mg/dL Lactic Acid 7.20 H* 7.60 H* (0.7-2.0) mmol/L Total Bilirubin (0.1-1.2) mg/dL AST (5-40) units/L ALT (7-56) units/L Alkaline Phosphatase (35-129) units/L Ammonia 143.0 H (25-60) umol/L Albumin (3.9-5) g/dL 10/05/18 Range/Units 17:58 WBC (4.5-11.0) K/mm3 RBC (3.65-5.03) M/mm3 Hgb (11.8-15.2) gm/dl Hct (35.5-45.6) % MCV (84-94) fl MCH (28-32) pg RDW (13.2-15.2) % Seg Neuts % (Manual) (40.0-70.0) % Lymphocytes % (Manual) (13.4-35.0) % Seg Neutrophils # Man (1.8-7.7) K/mm3 Monocytes # (Manual) (0.0-0.8) K/mm3 PT (12.2-14.9) Sec. INR (0.87-1.13) Potassium (3.6-5.0) mmol/L Chloride (98-107) mmol/L Carbon Dioxide (22-30) mmol/L BUN (9-20) mg/dL Creatinine (0.8-1.5) mg/dL Lactic Acid 6.20 H* (0.7-2.0) mmol/L Total Bilirubin (0.1-1.2) mg/dL AST (5-40) units/L ALT (7-56) units/L Alkaline Phosphatase (35-129) units/L Ammonia (25-60) umol/L Albumin (3.9-5) g/dL Assessment and Plan - Patient Problems (1) Sepsis Current Visit: Yes Status: Acute Qualifiers: Sepsis type: sepsis due to unspecified organism Qualified Code(s): A41.9 - Sepsis, unspecified organism Plan to address problem: Admit to ICU, Initiated sepsis protocol in ED, IVF resuscitation therapy, serial lactic acid, monitor uop q shift, blood cultures, urinalysis, supportive care. The high probability of a clinically significant, sudden or life threatening deterioration of the [neuro, cardiac renal, pulmonary] system(s) required my full and direct attention, intervention and personal management. The aggregate critical care time was [120] minutes. This time is in addition to time spent performing reported procedures but includes the following: [x] Data Review and interpretation [x] Patient assessment and monitoring of vital signs [x] Documentation [x] Medication orders and management (2) Acidosis Current Visit: Yes Status: Acute Plan to address problem: treat sepsis, IVF resuscitation therapy, serial lactic acid (3) Acute renal failure Current Visit: Yes Status: Acute Qualifiers: Acute renal failure type: with acute tubular necrosis Qualified Code(s): N17.0 - Acute kidney failure with tubular necrosis Plan to address problem: IVF resuscitation therapy, monitor uop q shift, Nephrology seen and evaluated in ED, but no active role in care at time of exam. Feel free to reconsult if needed. (4) Hepatic encephalopathy Current Visit: Yes Status: Acute Plan to address problem: Ammonia level, Liver Function test, supportive care, (5) Respiratory failure Current Visit: Yes Status: Acute Qualifiers: Chronicity: acute Respiratory failure complication: hypoxia Qualified Code(s): J96.01 - Acute respiratory failure with hypoxia Plan to address problem: chest x ray, NIPPV, supplemental oxygen, nebulizer therrapy, Admit to ICU, pulse oximetry (6) DVT prophylaxis Current Visit: Yes Status: Acute Plan to address problem: SCD to BLE while in bed.
[2018-10-05] MEDS ORDERED: VANCOMYCIN/NS 1 GM/250 ML 1 GM/250 ML BAG IV ONE (21:00)
[2018-10-05] MEDS ORDERED: NACL 0.9% 1000 ML 1,000 ML ONE (21:14)
[2018-10-05] MEDS ORDERED: ZOSYN/NS 4.5GM/100ML 4.5 GM/100 ML VIAL IV SCH (22:00)
[2018-10-05] MEDS ORDERED: SODIUM CHLORIDE FLUSH SYRINGE 10 ML IV SCH (22:00)
[2018-10-05] MEDS ORDERED: NACL 0.45% 2,000 ML IV SCH (22:00)
--- NOTE | 2018-10-05 22:00 | XRay Report ---
FINAL REPORT PROCEDURE: XR CHEST 1V AP TECHNIQUE: Chest radiograph anteroposterior view. CPT 73592 HISTORY: central line placement COMPARISON: No prior studies are available for comparison. FINDINGS: Heart: Normal. Mediastinum/Vessels: Normal. Lungs/Pleural space: Lungs are expanded. There are no infiltrates, effusions or pneumothoraces.. Bony thorax: No acute osseous abnormality. Life support devices: There is the left-sided central venous catheter. The tip is in the superior arron a cava.. IMPRESSION: Heart size is normal. Lungs are expanded. There are no infiltrates, effusions or pneumothoraces.. There is the left-sided central venous catheter. The tip is in the superior vena cava..
[2018-10-05] MEDS ORDERED: INTROPIN DRIP 800 MG/D5W 250 ML IV ONE (23:00)
[2018-10-05] MEDS ORDERED: ADRENALIN ONE (23:00)
[2018-10-05] MEDS ORDERED: CORDARONE IV ONE (23:00)
[2018-10-06] MEDS ORDERED: ZOSYN/NS 2.25 GM/50ML 2.25 GM/50 ML BAG IV SCH
[2018-10-06 02:18] VITALS: BP 108/16
--- NOTE | 2018-10-06 02:19 | Event Note ---
Date: 10/06/18 I responded to a call on a patient undergoing CPR while on ICU hold in the emergency room. Patient was given full ACLS protocol, was revived twice. Patient again went into cardiopulmonary arrest and CPR was carried out for the 3rd time for about 12 minutes and patient finally pronounced at 1:54 a.m . Patient's who was present in the hospital was notified.
--- NOTE | 2018-10-06 02:27 | Event Note ---
Date: 10/06/18 The patient Jamil Garrett had unsuccessful cardiopulmonary resuscitation, there was no spontaneous movement or respiration Pupils were fixed and dilated. Auscultation of chest showed no air movement and auscultation of the heart showed no impulses. Patient was pronounced at 1:54 a.m and the was notified.
--- NOTE | 2018-10-06 06:42 | Procedure Note ---
Date of procedure: 10/05/18 Pre-op diagnosis: sepsis Post-op diagnosis: same Procedure: Left IJ Central Line Placed under ultrasound guidance. Pt prepped and draped in the usual sterile fashion. Timeout taken to verify correct patient, procedure, and operative site, Seldinger technique used to access the LIJV without difficulty using ultrasound guidance. Catheter placed into the LIJV and sewn in place. antibiotic disk placed at base. Postoperative chest x ray shows central line in good position in SVC without pneumothorax. Anesthesia: local Surgeon: SANDY BASSETT Estimated blood loss: minimal Pathology: none Condition: critical Disposition: ICU
== END 2018-10-06 06:26 | DRG 871 ==
LOC: ED 13:40 → CC1 20:03
PROVIDERS: ADMIT Internal Medicine; ATTEND Internal Medicine
PROC: 5A09357 Assistance with Respiratory Ventilation, Less than 24 Consecutive Hours, Continuous Positive Airway Pressure (ICD-10-PCS; principal; 2018-10-05)
PROC: 02HV33Z Insertion of Infusion Device into Superior Vena Cava, Percutaneous Approach (ICD-10-PCS; 2018-10-05)
PROC: B548ZZA Ultrasonography of Superior Vena Cava, Guidance (ICD-10-PCS; 2018-10-05)
PROC: 5A12012 Performance of Cardiac Output, Single, Manual (ICD-10-PCS; 2018-10-06)
DX: A41.9 Sepsis, unspecified organism (principal); J96.01 Acute respiratory failure with hypoxia; N17.0 Acute kidney failure with tubular necrosis; K72.90 Hepatic failure, unspecified without coma; J44.9 Chronic obstructive pulmonary disease, unspecified; K74.60 Unspecified cirrhosis of liver; N18.9 Chronic kidney disease, unspecified; E87.5 Hyperkalemia; E16.2 Hypoglycemia, unspecified; Z85.05 Personal history of malignant neoplasm of liver; Z82.49 Family history of ischemic heart disease and other diseases of the circulatory system
CPT/HCPCS: 36415; 70450; 71045; 80053; 81001; 82140; 82962; 84484; 85007; 85025; 85610; 85730; 87040; 93005; 93010; 94640; G0378; J0171; J0282; J1265; J1815; J2543; J3370; J7030; J7040